=== PATIENT | female | born 1990 | race Caucasian/White ===

== ENCOUNTER → 2021-08-10 | Outpatient (CLI) | payer BC ==
--- NOTE | 2021-08-10 07:55 | US ---
EXAMINATION TYPE: US transvaginal DATE OF EXAM: 08/10/2021 COMPARISON: NONE CLINICAL HISTORY: N92.6 irregular menstruation, unspecified. irregular cycles that have come and gone for years, PCOS, patient on new pill that limits cycles but she still has long cycles monthly, G0 TECHNIQUE: TV. Transvaginal sonographic images Date of LMP: unknown EXAM MEASUREMENTS: Uterus: 6.8 x 4.6 x 2.5 cm Endometrial Stripe: 0.5 cm Right Ovary: 1.6 x 1.4 x 1.7 cm Left Ovary: 2.3 x 1.8 x 2.0 cm 1. Uterus: Anteverted wnl 2. Endometrium: wnl 3. Right Ovary: wnl 4. Left Ovary: wnl 5. Bilateral Adnexa: wnl 6. Posterior cul-de-sac: wnl Unremarkable transvaginal pelvic ultrasound IMPRESSION: As above.
== END | disposition home or self-care (01) ==
LOC: RADUSWWP 07:10
PROVIDERS: ATTEND Family Medicine
DX: N92.6 Irregular menstruation, unspecified (principal); E28.2 Polycystic ovarian syndrome
CPT/HCPCS: 76830

== ENCOUNTER 2025-05-25 15:41 | Observation (INO) | payer BC ==
[2025-05-25 16:29] LABS: Basophils # (A) 0.02 10*3/uL (0.00-0.10); Basophils % (A) 0.2 %; Eosinophils # (A) 0.09 10*3/uL (0.04-0.35); Eosinophils % (A) 0.9 %; HCT 34.4 % (37.2-46.3); HGB 11.8 g/dL (12.0-15.0); Lymphocytes # (A) 1.40 10*3/uL (0.90-5.00); Lymphocytes % (A) 13.8 %; MCH 31.6 pg (27.0-32.0); MCHC 34.3 g/dL (32.0-37.0); MCV 92.2 fL (80.0-97.0); Monocytes # (A) 0.54 10*3/uL (0.20-1.00); Monocytes % (A) 5.3 %; Neutrophils # (A) 8.01 10*3/uL (1.80-7.70); Neutrophils % (A) 79.3 %; Platelet Count 279 10*3/uL (140-440); RBC 3.73 10*6/uL (4.10-5.20); RDW 12.6 % (11.5-14.5); WBC 10.11 10*3/uL (4.50-10.00)
[2025-05-25 16:41] LABS: Bacteria,Urine Occasional /hpf; Bilirubin,Urine Negative (Negative); Blood,Urine Negative (Negative); Color,Urine Colorless; Glucose,Urine (UA) Negative (Negative); Ketones,Urine Negative (Negative); Leukocyte Esterase,Urine Small (Negative); Nitrite,Urine Negative (Negative); PH, Urine 6.0 (5.0-8.0); Protein,Urine Negative (Negative); RBC,Urine 1 /hpf (0-5); Specific Gravity,Urine 1.005 (1.001-1.035); Squamous Epithelial Cell,Urine 3 /hpf (0-4); Urobilinogen,Urine <2.0 mg/dL (<2.0); WBC,Urine 2 /hpf (0-5)
[2025-05-25 16:42] LABS: ALT 17 U/L (4-34); AST 25 U/L (14-36); African American GFR (CKD) >90 (>60 ml/min/1.73 sqM); Blood Urea Nitrogen 10 mg/dL (7-17); LDH 152 U/L (120-246); Non-African American GFR(CKD) >90 (>60 ml/min/1.73 sqM); Uric Acid 4.5 mg/dL (3.7-7.4)
[2025-05-25 16:49] LABS: Protein/Creatinine Ratio,Urine 0.407
[2025-05-25] MEDS ORDERED: ACETAMINOPHEN TAB 500 MG TAB PO PRN (20:10)
[2025-05-25] MEDS ORDERED: ONDANSETRON 4 MG/2 ML VIAL IVP PRN (20:10)
[2025-05-25] MEDS: LABETALOL 200 MG TAB PO SCH (20:35)
[2025-05-26 10:24] VITALS: PULSE 78; RESP 14; TEMP 97.4
--- NOTE | 2025-05-26 11:57 | P.HPOB ---
History of Present Illness H&P Date: 05/26/25 Chief Complaint: Elevated blood pressures Ms. Alfonso is a 34 year old at 32 weeks and 4 days by LMP consistent with 11 week US who was sent to the office for PIH work-up after having elevated blood pressures in the office yesterday 140s/90s-100s. She denied any headache, visual changes, RUQ pain and continues to deny those symptoms this morning. She did have intermittent severe range blood pressures for which she was started on oral labetalol overnight by the covering physician. PIH labs were within normal limits except for proteinuia with urine P:C ratio of 0.4. After this medication was started, she has been normotensive. She is feeling well and desires di scharge home. Past Medical History Past Medical History: No Reported History History of Any Multi-Drug Resistant Organisms: None Reported Past Surgical History: Tonsillectomy Smoking Status: Never smoker - Past Family History Mother Family Medical History: No Reported History Medications and Allergies Home Medications Medication Instructions Recorded Confirmed Type Cetirizine HCl [Zyrtec] 10 mg PO DAILY 05/25/25 05/25/25 History Vit No.179/Iron/Folic 1 each PO DAILY 05/25/25 05/25/25 History [ Tablet] Allergies Allergy/AdvReac Type Severity Reaction Status Date / Time No Known Allergies Allergy Verified 05/25/25 15:42 Exam Vital Signs Temp Pulse Pulse Resp BP Pulse Ox 05/26/25 08:00 97.4 F L 78 14 136/93 97 05/26/25 07:00 96.6 F L 75 16 131/83 99 05/25/25 23:30 98.5 F 88 16 138/84 97 05/25/25 18:58 97.9 F 89 16 136/96 05/25/25 18:15 82 16 136/96 05/25/25 15:41 97.9 F 89 16 157/110 Intake and Output 05/25/25 05/26/25 05/26/25 22:59 06:59 14:59 Intake Total 150 Balance 150 Intake: Oral 150 Other: # Voids 1 1 Weight 111.13 kg Focused physical exam is performed. This is a healthy-appearing in no apparent distress. Breathing is non-labored. Abdomen is gravid and non-tender. Extremities non-tender and non-edematous. heart tones are reactive and reassuring on the NST. Results Result Diagrams: 05/25/25 16:11 05/25/25 16:11 Abnormal Lab Results - Last 24 Hours (Table) 05/25/25 05/25/25 Range/Units 16:00 16:11 WBC 10.11 H (4.50-10.00) 10*3/uL RBC 3.73 L (4.10-5.20) 10*6/uL Hgb 11.8 L (12.0-15.0) g/dL Hct 34.4 L (37.2-46.3) % Immature Gran # 0.05 H (0.00-0.04) 10*3/uL Neutrophils # 8.01 H (1.80-7.70) 10*3/uL Ur Leukocyte Esterase Small H (Negative) Urine Bacteria Occasional H (None) /hpf Assessment and Plan Assessment: 34 year old at 32 weeks and 4 days with pre-eclampsia without severe features Plan: Discharge home on current dose of Labetalol. Monitor BPs daily at home, bring log to appointments. Needs weekly NSTs and PIH labs drawn. Delivery at 37 weeks unless condition worsens.
[2025-05-26 12:32] VITALS: BP 148/95
== END 2025-05-26 12:30 | disposition home or self-care (01) ==
LOC: FBPOP 15:41 → 4FBP 18:34
PROVIDERS: ADMIT Obstetrics & Gynecology; ATTEND Obstetrics & Gynecology
DX: O14.03 Mild to moderate pre-eclampsia, third trimester (principal); Z3A.37 37 weeks gestation of pregnancy
CPT/HCPCS: 59025; 99215; 82570; 84156; 82565; 83615; 84450; 84460; 84520; 84550; 85025; 81001; G0378 ×2